=== PATIENT | male | born 1960 | race American Indian/Alaskan Native ===

== ENCOUNTER 2017-12-29 19:58 | Emergency (ER) | payer OTHER ==
[2017-12-29] MEDS ORDERED: TYLENOL PO ONE (20:38)
[2017-12-29] MEDS ORDERED: TYLENOL ONE (20:40)
[2017-12-29 21:16] LABS: Basophils # (Auto) 0.1 K/mm3 (0.0-0.1); Basophils % (Auto) 1.1 % (0.0-1.8); Eosinophils # (Auto) 0.2 K/mm3 (0.0-0.4); Hemoglobin 13.2 gm/dl (11.8-15.2); Lymphocytes # (Auto) 2.6 K/mm3 (1.2-5.4); Mean Corpuscular HGB Conc 33 % (32-34); Mean Corpuscular Hemoglobin 31 pg (28-32); Mean Corpuscular Volume 94 fl (84-94); Monocytes # (Auto) 0.4 K/mm3 (0.0-0.8); Monocytes % (Auto) 6.6 % (0.0-7.3); Red Blood Count 4.24 M/mm3 (3.65-5.03); Red Cell Distribution Width 13.5 % (13.2-15.2)
[2017-12-29 21:26] LABS: INR 0.98 (0.87-1.13); Partial Thromboplastin Time 31.5 Sec. (24.2-36.6)
[2017-12-29 21:36] LABS: Alanine Aminotransferase 18 units/L (7-56); Albumin 3.8 g/dL (3.9-5); BUN/Creatinine Ratio 7; Blood Urea Nitrogen 8 mg/dL (9-20); Calcium 8.8 mg/dL (8.4-10.2); Hemolysis Index 18
[2017-12-29 21:43] LABS: Platelet Count 175 K/mm3 (140-440)
[2017-12-30] MEDS ORDERED: ULTRAM PO ONE (06:55)
[2017-12-30] MEDS ORDERED: CLEOCIN 600 MG/50 mL 600 MG/50 ML BAG IV ONE (06:55)
[2017-12-30] MEDS ORDERED: TORADOL IV ONE (06:55)
--- NOTE | 2017-12-30 07:33 | XRay Report ---
RIGHT ANKLE, 3 views: History: Swelling, infection, pain. Findings: Diffuse soft tissue swelling is identified. There is normal bone mineralization. Moderate osteoarthritic changes are identified in the mid foot and ankle. No fracture, periostitis or bony destruction. Impression: Soft tissue swelling. Degenerative changes.
--- NOTE | 2017-12-30 07:56 | Emergency Department Report ---
ED Lower Extremity HPI - General Chief Complaint: Extremity Problem,Nontraumatic Stated Complaint: RIGHT LEG PAIN Time Seen by Provider: 12/30/17 06:20 Source: patient Mode of arrival: Ambulatory Limitations: No Limitations - History of Present Illness Initial Comments: 57 year old male with hx of right leg dvt in 2009 presents to the hospital with complaints of right foot and ankle pain and swelling worsening for 2-3 weeks. Patient has a ulceration to the right lateral distal leg/ankle area which he thinks started because his work boots were rubbing up against the area. Symptoms have progressively worsened with worsening pain and swelling. Patient denies any drainage. Pain to vaguely a 9/10 in intensity, constant but fluctuates in intensity. Patient states is actually improved and he has his work boots on and is working and worsens when he stops moving around. Patient denies fevers. No known history of diabetes. Patient does smoke cigarettes. Patient state he had an ultrasound ordered by an urgent care were performed and they sent her in [place] in July 2017 that was "negative". PMD: none - Related Data Previous Rx's Medication Instructions Recorded Last Taken Type HYDROcodone/ACETAMINOPHEN [[place] 1 each PO Q6HR PRN #20 tablet 12/30/17 Unknown Rx 5-325 Tablet] Ibuprofen [Motrin] 800 mg PO Q8HR PRN #30 tablet 12/30/17 Unknown Rx amLODIPine [Norvasc] 5 mg PO DAILY #30 tab 12/30/17 Unknown Rx Allergies Allergy/AdvReac Type Severity Reaction Status Date / Time No Known Allergies Allergy Verified 12/29/17 20:43 ED Review of Systems ROS: Stated complaint: RIGHT LEG PAIN Other details as noted in HPI Comment: All other systems reviewed and negative Other: Constitutional: No fevers chills Eyes: No eye pain visual changes ENT: No ear pain or throat pain Neck: Denies pain Respiratory: Denies cough wheezing shortness of breath Cardiovascular: Denies chest pain, palpitations, syncope GI: Denies abdominal pain, nausea, vomiting, diarrhea : Denies dysuria Musculoskeletal: As per HPI Skin: As per HPI Neurologic: Denies headache, numbness, weakness Psychiatric: Denies suicidal ideation, hallucinations ED Past Medical Hx - Past Medical History Previous Medical History?: Yes Hx Deep Vein Thrombosis: Yes (2009) - Surgical History Past Surgical History?: Yes - Social History Smoking Status: Light Tobacco Smoker Substance Use Type: Alcohol - Medications Home Medications: Home Medications Medication Instructions Recorded Confirmed Last Taken Type HYDROcodone/ACETAMINOPHEN [[place] 1 each PO Q6HR PRN #20 tablet 12/30/17 Unknown Rx 5-325 Tablet] Ibuprofen [Motrin] 800 mg PO Q8HR PRN #30 tablet 12/30/17 Unknown Rx amLODIPine [Norvasc] 5 mg PO DAILY #30 tab 12/30/17 Unknown Rx ED Physical Exam - General Limitations: No Limitations - Other Other exam information: General: No limitations, patient is alert in no acute distress Head exam: Atraumatic, normocephalic Eyes exam: Normal appearance, pupils equal reactive to light, extraocular movements intact ENT: Moist mucous membrane, normal oropharynx Neck exam: Normal inspection, full range of motion, no meningismus nontender Respiratory exam: Clear to auscultation bilateral, no wheezes, rales, crackles Cardiovascular: Normal rate and rhythm, normal heart sounds Abdomen: Soft, nondistended, and nontender, with normal bowel sounds, no rebound, or guarding Extremity: Full range of motion, minimal pain with ankle dorsi and plantar flexion. Significant edema to right foot, ankle, and distal leg. 1.5 cm circular superficial ulceration to the lateral distal right leg above the ankle. Mild warmth. Tenderness to palpation. No calf tenderness. 2+ palpable DP pluse Back: Normal Inspection, full range of motion, no tenderness Neurologic: Alert, oriented x3, cranial nerves intact, no motor or sensory deficit Psychiatric: normal affect, normal mood Skin: Warm, dry, intact ED Course Vital Signs 12/29/17 12/29/17 12/30/17 20:20 20:40 02:39 Temperature 98.2 F 97.8 F Pulse Rate 83 51 L Respiratory 18 18 19 Rate Blood Pressure 175/83 Blood Pressure 171/81 [Left] O2 Sat by Pulse 98 97 Oximetry 12/30/17 12/30/17 12/30/17 03:00 04:00 05:00 Temperature Pulse Rate Respiratory Rate Blood Pressure 175/91 168/83 142/89 Blood Pressure [Left] O2 Sat by Pulse 97 95 98 Oximetry 12/30/17 12/30/17 12/30/17 06:00 07:00 09:04 Temperature Pulse Rate Respiratory Rate Blood Pressure 150/81 172/79 173/89 Blood Pressure [Left] O2 Sat by Pulse 96 96 98 Oximetry 12/30/17 10:58 Temperature Pulse Rate 59 L Respiratory 16 Rate Blood Pressure Blood Pressure 158/78 [Left] O2 Sat by Pulse 96 Oximetry - Consultations Consultation #1: 12/30/17 09:45 Case discussed with JAMAICA Carnes with vascular. Dr. Fernandes will come by to evaluate. 12/30/17 12:[address] fernandes. Does not recommend antibiotics. Recommend outpatient follow-up for venous insufficiency and wound care ED Lower Extremity MDM - Lab Data Result diagrams: 12/29/17 21:01 12/29/17 20:48 Lab Results 12/29/17 12/29/17 12/29/17 Range/Units 20:48 20:48 21:01 WBC 6.4 (4.5-11.0) K/mm3 RBC 4.24 (3.65-5.03) M/mm3 Hgb 13.2 (11.8-15.2) gm/dl Hct 40.0 (35.5-45.6) % MCV 94 (84-94) fl MCH 31 (28-32) pg MCHC 33 (32-34) % RDW 13.5 (13.2-15.2) % Plt Count 175 (140-440) K/mm3 Lymph % (Auto) 40.0 H (13.4-35.0) % Henry % (Auto) 6.6 (0.0-7.3) % Eos % (Auto) 3.0 (0.0-4.3) % Baso % (Auto) 1.1 (0.0-1.8) % Lymph # 2.6 (1.2-5.4) K/mm3 Henry # 0.4 (0.0-0.8) K/mm3 Eos # 0.2 (0.0-0.4) K/mm3 Baso # 0.1 (0.0-0.1) K/mm3 Seg Neutrophils % 49.3 (40.0-70.0) % Seg Neutrophils # 3.2 (1.8-7.7) K/mm3 PT 13.5 (12.2-14.9) Sec. INR 0.98 (0.87-1.13) APTT 31.5 (24.2-36.6) Sec. Sodium 140 (137-145) mmol/L Potassium 3.6 (3.6-5.0) mmol/L Chloride 102.1 (98-107) mmol/L Carbon Dioxide 23 (22-30) mmol/L Anion Gap 19 mmol/L BUN 8 L (9-20) mg/dL Creatinine 1.2 (0.8-1.5) mg/dL Estimated GFR > 60 ml/min BUN/Creatinine Ratio 7 % Glucose 123 H (75-100) mg/dL Calcium 8.8 (8.4-10.2) mg/dL Total Bilirubin 0.50 (0.1-1.2) mg/dL AST 21 (5-40) units/L ALT 18 (7-56) units/L Alkaline Phosphatase 79 (35-129) units/L Total Protein 6.8 (6.3-8.2) g/dL Albumin 3.8 L (3.9-5) g/dL Albumin/Globulin Ratio 1.3 % - Radiology Data Radiology results: report reviewed Read by radiologist Right ankle x-ray: Degenerative changes and soft tissue swelling Doppler right leg chronic DVT nonocclusive see report for details - Medical Decision Making Patient given a dose of antibiotics to cover for infection but no signs of leukocytosis or fever. Minimal warmth on exam. Patient evaluated by vascular antibodies and not diminished. Patient likely has saphenous vein insufficiency with associated chronic venous stasis ulcer and recommended care and outpatient follow-up. Patient will be prescribed pain medication. Patient also noted to have elevated blood pressure. Norvasc 5 mg daily will be initiated and outpatient follow-up recommended - Differential Diagnosis cellulitis, DVT, arthritis, gout, abscess, PVD Critical Care Time: No Critical care attestation.: If time is entered above; I have spent that time in minutes in the direct care of this critically ill patient, excluding procedure time. ED Disposition Clinical Impression: Venous insufficiency of right leg, Venous stasis ulcer, Hypertension, Chronic deep vein thrombosis (DVT) of right lower extremity Disposition: TO HOME OR SELFCARE Is pt being admited?: No Does the pt Need Aspirin: No Condition: Stable Instructions: Hypertension (ED), Deep Venous Thrombosis (ED), Stasis Dermatitis (ED), Acute Wound Care (ED) Additional Instructions: Take the medication as prescribed. Follow-up with the surgeon as suggested. Also follow wound care and primary care. You have been prescribed a blood pressure medication for your elevated blood pressure. Have this rechecked by a primary care doctor Prescriptions: amLODIPine [Norvasc] 5 mg PO DAILY #30 tab HYDROcodone/ACETAMINOPHEN [[place] 5-325 Tablet] 1 each PO Q6HR PRN #20 tablet PRN Reason: Pain Ibuprofen [Motrin] 800 mg PO Q8HR PRN #30 tablet PRN Reason: Pain Referrals: [facility] [Provider Group] - 3-5 Days (Dr Fernandes) [facility] [Provider Group] - 3-5 Days (primary care clinic) PAUL BURTON MD [Staff Physician] - 3-5 Days (Primary care doctor) [facility] [Outside] - 3-5 Days (wound care clinc) Time of Disposition: 12:22
[2017-12-30 13:29] VITALS: BP 137/84
== END 2017-12-30 13:29 | disposition home or self-care (01) ==
LOC: ED 19:58
DX: I83.218 Varicose veins of right lower extremity with both ulcer of other part of lower extremity and inflammation (principal); L97.819 Non-pressure chronic ulcer of other part of right lower leg with unspecified severity; I82.5Z1 Chronic embolism and thrombosis of unspecified deep veins of right distal lower extremity; I10 Essential (primary) hypertension; F17.200 Nicotine dependence, unspecified, uncomplicated
CPT/HCPCS: 36415; 73610; 80053; 85025; 85610; 85730; 93971; 96365; 96375; 99284; J1885